=== PATIENT | female | born 1950 | race Two or more races ===

== ENCOUNTER 2023-01-05 05:48 | Day surgery (SDC) | payer OTHER ==
[~2023-01-05] VITALS: Ht 160 cm; Wt 73.9 kg
[~2023-01-05 05:48] MED LIST: ALLEGRA ALLERGY60 MG PO; CRESTOR40 MG PO; CYMBALTA30 MG PO; DIVALPROEX SOD500 M1 PO; MITIGARE0.6 MG PO; NEURONTIN600 MG PO; PLAQUENIL PO; REPLAX PO; SINGULAIR 10MG10 MG PO; ZANTAC300 MG PO; [UNRECOGNIZED DRUG - OTHER] PO; [UNRECOGNIZED DRUG - OTHER] PO
== END 2023-01-05 12:40 | disposition home or self-care (01) ==
LOC: CIR.AMB 05:48
PROVIDERS: ATTEND Orthopaedic Surgery
DX: M75.122 Complete rotator cuff tear or rupture of left shoulder, not specified as traumatic (principal); M65.812 Other synovitis and tenosynovitis, left shoulder; M24.112 Other articular cartilage disorders, left shoulder; M75.22 Bicipital tendinitis, left shoulder; Z88.2 Allergy status to sulfonamides; Z91.041 Radiographic dye allergy status; Z20.822 Contact with and (suspected) exposure to COVID-19